=== PATIENT | male | born 1965 | race Two or more races ===

== ENCOUNTER 2021-03-12 14:53 | Inpatient (IN) | payer MEDICAID, OTHER ==
[~2021-03-12] VITALS: Ht 175.3 cm; Wt 83.0 kg
[~2021-03-12 14:53] MED LIST: ETOMIDATE (2MG/ML) 20ML VIAL IV ONE; SUCCINYLCHOLINE CHLORIDE 20 MG/ML 10ML VIAL IV ONE
[2021-03-12] MEDS ORDERED: THIAMINE 100mg/ml INJ (200mg/2ml VIAL) IV ONE (15:30)
[2021-03-12] MEDS ORDERED: SODIUM CHLORIDE 0.9% 1,000 ML IV ONE ×3 (15:30→16:45)
[2021-03-12 16:04] LABS: Basophils # (auto) 0 10 ^3/uL (0-0.2); Basophils % (auto) 0.7 % (0.0-2.0); Eosinophils # (auto) 0.1 10 ^3/uL (0-0.8); Eosinophils % (auto) 2.3 % (0.0-7.0); Hemoglobin 14.9 g/dL (13.5-17.5); Lymphocytes # (auto) 1.6 10 ^3/uL (0.4-5.4); Lymphocytes % (auto) 27.8 % (10.0-50.0); Mean Corpuscular Hemoglobin 32.1 pg (28.0-32.0); Mean Corpuscular Hgb Conc. 34.6 g/dL (32.0-36.0); Mean Corpuscular Volume 92.9 fL (80.0-100.0); Monocytes # (auto) 0.7 10 ^3/uL (0-1.3); Monocytes % (auto) 12.6 % (0.0-12.0); Neutrophils # (auto) 3.2 10 ^3/uL (1.6-8.6); Neutrophils % (auto) 56.6 % (37.0-80.0); Nucleated Red Blood Cells % 0.2 %; Red Blood Cells 4.63 10^6/uL (4.5-5.90); Red Cell Distribution Width 17.2 % (11.8-14.3); White Blood Cell 5.6 10^3/uL (4.4-10.8)
[2021-03-12 16:21] LABS: Alanine Aminotransferase 107 U/L (16-61); Albumin 3.5 g/dL (3.4-5.0); Anion Gap 13 (5-15); Aspartate Aminotransferase 96 U/L (15-37); BUN/Creatinine Ratio 10.4; Blood Urea Nitrogen 24 mg/dL (7-18); Calcium 8.2 mg/dL (8.5-10.1); Carbon Dioxide 20 mmol/L (21-32); Chloride 109 mmol/L (98-107); GFR African American 40 mL/min; GFR Non-African American 33 mL/min; Glucose 120 mg/dL (74-106); Potassium 3.5 mmol/L (3.5-5.1); Sodium 142 mmol/L (136-145)
[2021-03-12 16:29] LABS: Alkaline Phosphatase 64 U/L (45-117); Bilirubin, Total 0.4 mg/dL (0.2-1.0); Total Protein 6.8 g/dL (6.4-8.2)
[2021-03-12] MEDS ORDERED: diphenhdrAMINE HCL 50 MG/1 ML VL ONE (16:56)
[2021-03-12] MEDS ORDERED: PROMETHAZINE HCL 25 MG/ML 1ML ONE (16:57)
[2021-03-12] MEDS ORDERED: LORazepam 2MG/ML-1ML VIAL ONE (16:57)
[2021-03-12] MEDS ORDERED: diphenhdrAMINE HCL 50 MG/1 ML VL IV ONE (17:00)
[2021-03-12] MEDS ORDERED: LORazepam 2MG/ML-1ML VIAL IV ONE (17:00)
[2021-03-12] MEDS ORDERED: PROMETHAZINE HCL 25 MG/ML 1ML IV ONE (17:00)
[2021-03-12] MEDS ORDERED: SODIUM CHLORIDE 0.9% 2,000 ML IV ONE (17:30)
[2021-03-12] MEDS: NOREPINEPHRINE 8 MG/250ML KIT 250 ML IV SCH (17:43)
[2021-03-12] MEDS ORDERED: MIDAZOLAM DRIP 50 mg/50mL 50 ML IV ONE (17:44)
[2021-03-12] MEDS ORDERED: SUCCINYLCHOLINE CHLORIDE 20 MG/ML 10ML VIAL IV ONE ×2 (17:45→18:15)
[2021-03-12] MEDS ORDERED: ETOMIDATE (2MG/ML) 20ML VIAL IV ONE ×2 (17:45→18:15)
[2021-03-12] MEDS: MIDAZOLAM DRIP 50 mg/50mL 50 ML IV SCH (17:58)
[2021-03-12 17:59] LABS: Amphetamine Screen, Urine NEGATIVE (NEGATIVE); Barbiturate Scree,Urine NEGATIVE (NEGATIVE); Benzodiazephine Screen, Urine NEGATIVE (NEGATIVE); Cannabinoid Screen, Urine NEGATIVE (NEGATIVE); Cocaine Screen, Urine NEGATIVE (NEGATIVE); Phencyclidine Screen, Urine NEGATIVE (NEGATIVE)
[2021-03-12] MEDS ORDERED: PANTOPRAZOLE 40mg/50ML NS AE 50 ML IV ONE (18:00)
[2021-03-12 18:08] LABS: Opiate Scree,Urine NEGATIVE (NEGATIVE)
[2021-03-12 18:36] LABS: Urine Bacteria FEW /hpf (None Seen); Urine Blood TRACE /uL (Negative); Urine Hyaline Cast MOD /lpf (0 - 2); Urine Mucus FEW (None Seen); Urine Specific Gravity 1.015 (1.001-1.035); Urine WBC 12 /hpf (0 - 3)
[2021-03-12 19:40] VITALS: BP 109/75
[2021-03-12 22:05] VITALS: BP 119/83
[2021-03-12] MEDS ORDERED: MORPHINE SULF INJ 2 MG/ML SYRINGE 1ML IV PRN (23:45)
[2021-03-12] MEDS ORDERED: SODIUM CHLORIDE 0.9% 1,000 ML IV SCH (23:45)
[2021-03-12] MEDS ORDERED: NITROGLYCERIN 0.4 MG SL TAB SL PRN (23:45)
[2021-03-12] MEDS ORDERED: ONDANSETRON HCL 4 MG/2 ML VIAL IV PRN (23:45)
[2021-03-13] VITALS (12 sets, daily range): BP systolic 112–142; BP diastolic 71–103
[2021-03-13] MEDS ORDERED: PROPOFOL 100 ML IV ONE (02:55)
[2021-03-13] MEDS: PROPOFOL 100 ML IV SCH ×2 (03:08→20:33)
[2021-03-13 10:37] LABS: Basophils # (auto) 0 10 ^3/uL (0-0.2); Basophils % (auto) 0.5 % (0.0-2.0); Eosinophils # (auto) 0.1 10 ^3/uL (0-0.8); Eosinophils % (auto) 1.8 % (0.0-7.0); Hematocrit 37.4 % (41.0-53.0); Hemoglobin 12.7 g/dL (13.5-17.5); Mean Corpuscular Hemoglobin 31.7 pg (28.0-32.0); Mean Corpuscular Volume 93.3 fL (80.0-100.0); Monocytes # (auto) 0.7 10 ^3/uL (0-1.3); Monocytes % (auto) 10.9 % (0.0-12.0); Neutrophils # (auto) 4.2 10 ^3/uL (1.6-8.6); Neutrophils % (auto) 70.8 % (37.0-80.0); Red Blood Cells 4.01 10^6/uL (4.5-5.90); Red Cell Distribution Width 17.1 % (11.8-14.3)
[2021-03-13] MEDS: MULTIPLE VITAMIN TAB PO SCH (10:39)
[2021-03-13] MEDS: HEPARIN SODIUM (PORCINE) 5000 UNITS/ML 1ML VIAL SC SCH ×2 (10:49→22:06)
[2021-03-13] MEDS: FAMOTIDINE (10MG/ML) 2ML VL IV SCH (10:50)
[2021-03-13] MEDS: FOLIC ACID 1 MG in D5W 5% 50 ML INJ SCH (10:50)
[2021-03-13] MEDS: THIAMINE 100mg/ml INJ (200mg/2ml VIAL) IV SCH (10:50)
[2021-03-13] MEDS: AZITHROMYCIN 500MG/ 250ML 250 ML IV SCH (10:51)
[2021-03-13 11:19] LABS: Potassium 3.5 mmol/L (3.5-5.1)
[2021-03-13] MEDS ORDERED: FOLIC ACID 1 MG, MULTIPLE VITAMIN 10 ML, MAGNESIUM SULF SDV 50% 8 MEQ, THIAMINE INJ 100... INJ ONE ×5 (12:00)
[2021-03-13 12:08] LABS: BUN/Creatinine Ratio 14.3; Bilirubin, Total 0.5 mg/dL (0.2-1.0); Calcium 7.3 mg/dL (8.5-10.1); Total Protein 5.7 g/dL (6.4-8.2)
[2021-03-13] MEDS ORDERED: LABETALOL HCL 200 MG TAB PO ONE (12:15)
[2021-03-13] MEDS ORDERED: cefTRIAXone 1GM/50ML D5W 50 ML IV ONE (12:15)
[2021-03-13] MEDS ORDERED: cloNIDine HCL 0.1 MG TAB PO PRN (12:15)
[2021-03-13] MEDS ORDERED: LABETALOL HCL 5 MG/ML 4ML SYRINGE IV PRN (12:30)
[2021-03-13] MEDS: D5W/SOD CHL 0.45% 1,000 ML IV SCH (16:14)
[2021-03-13] MEDS ORDERED: cloNIDine 0.1 mg/24hr 7 DAY PATCH TD SCH (17:00)
[2021-03-13] MEDS: NOREPINEPHRINE 8 MG/250ML KIT 250 ML IV SCH (17:30)
[2021-03-13] MEDS: MIDAZOLAM DRIP 50 mg/50mL 50 ML IV SCH ×2 (18:17→21:00)
[2021-03-13] MEDS ORDERED: LABETALOL HCL 200 MG TAB PO SCH (22:00)
[2021-03-14] VITALS (30 sets, daily range): BP systolic 117–151; BP diastolic 79–106
[2021-03-14] MEDS: LABETALOL HCL 5 MG/ML 4ML SYRINGE IV PRN (00:45)
[2021-03-14] MEDS: MIDAZOLAM DRIP 50 mg/50mL 50 ML IV SCH ×3 (01:18→21:20)
[2021-03-14] MEDS: PROPOFOL 100 ML IV SCH ×3 (02:19→21:21)
[2021-03-14] MEDS: D5W/SOD CHL 0.45% 1,000 ML IV SCH (02:32)
[2021-03-14] MEDS ORDERED: ACETAMINOPHEN 650 MG RECT SUPP PR PRN (03:45)
[2021-03-14 08:41] LABS: Basophils # (auto) 0 10 ^3/uL (0-0.2); Basophils % (auto) 0.7 % (0.0-2.0); Eosinophils # (auto) 0.3 10 ^3/uL (0-0.8); Hematocrit 37.3 % (41.0-53.0); Hemoglobin 12.7 g/dL (13.5-17.5); Lymphocytes % (auto) 19.2 % (10.0-50.0); Mean Corpuscular Hemoglobin 31.3 pg (28.0-32.0); Mean Corpuscular Hgb Conc. 33.9 g/dL (32.0-36.0); Mean Corpuscular Volume 92.2 fL (80.0-100.0); Monocytes # (auto) 0.7 10 ^3/uL (0-1.3); Monocytes % (auto) 13.3 % (0.0-12.0); Neutrophils # (auto) 3.4 10 ^3/uL (1.6-8.6); Neutrophils % (auto) 61.8 % (37.0-80.0); Nucleated Red Blood Cells % 0.1 %; Red Blood Cells 4.05 10^6/uL (4.5-5.90); Red Cell Distribution Width 16.7 % (11.8-14.3); White Blood Cell 5.4 10^3/uL (4.4-10.8)
[2021-03-14 08:56] LABS: Albumin 2.8 g/dL (3.4-5.0); Calcium 7.6 mg/dL (8.5-10.1); Potassium 3.1 mmol/L (3.5-5.1)
[2021-03-14 09:00] LABS: BUN/Creatinine Ratio 15.3; Bilirubin, Total 0.6 mg/dL (0.2-1.0); Total Protein 5.8 g/dL (6.4-8.2)
[2021-03-14] MEDS: cefTRIAXone 1GM/50ML D5W 50 ML IV SCH (09:46)
[2021-03-14] MEDS: THIAMINE 100mg/ml INJ (200mg/2ml VIAL) IV SCH (09:55)
[2021-03-14] MEDS: MULTIPLE VITAMIN TAB PO SCH (09:55)
[2021-03-14] MEDS: FAMOTIDINE (10MG/ML) 2ML VL IV SCH ×2 (09:55→21:36)
[2021-03-14] MEDS: AZITHROMYCIN 500MG/ 250ML 250 ML IV SCH (10:00)
[2021-03-14] MEDS: FOLIC ACID 1 MG in D5W 5% 50 ML INJ SCH (10:00)
[2021-03-14] MEDS: HEPARIN SODIUM (PORCINE) 5000 UNITS/ML 1ML VIAL SC SCH ×2 (10:11→21:37)
[2021-03-14] MEDS ORDERED: POTASSIUM CHL 20MEQ/100ML 100 ML IV ONE (12:45)
[2021-03-14] MEDS ORDERED: SODIUM CHLORIDE 0.9% 3,000 ML IV ONE (12:45)
[2021-03-14] MEDS ORDERED: SODIUM CHLORIDE 0.9% 2,500 ML IV ONE ×2 (12:45)
[2021-03-14] MEDS: NOREPINEPHRINE 8 MG/250ML KIT 250 ML IV SCH (17:12)
[2021-03-14] MEDS: chlordiazePOXIDE HCL 5 MG CAP PO SCH ×2 (18:00→21:36)
[2021-03-15] VITALS (104 sets, daily range): BP systolic 102–185; BP diastolic 8–123
[2021-03-15] MEDS: PROPOFOL 100 ML IV SCH ×3 (01:12→16:30)
[2021-03-15 04:06] LABS: Basophils # (auto) 0.1 10 ^3/uL (0-0.2); Basophils % (auto) 1.2 % (0.0-2.0); Eosinophils # (auto) 0.4 10 ^3/uL (0-0.8); Hematocrit 38.6 % (41.0-53.0); Hemoglobin 13.5 g/dL (13.5-17.5); Lymphocytes # (auto) 1.5 10 ^3/uL (0.4-5.4); Mean Corpuscular Hemoglobin 32.4 pg (28.0-32.0); Mean Corpuscular Hgb Conc. 34.9 g/dL (32.0-36.0); Monocytes # (auto) 0.6 10 ^3/uL (0-1.3); Monocytes % (auto) 12.2 % (0.0-12.0); Neutrophils # (auto) 2.6 10 ^3/uL (1.6-8.6); Neutrophils % (auto) 49.6 % (37.0-80.0); Nucleated Red Blood Cells % 0.1 %; Red Blood Cells 4.15 10^6/uL (4.5-5.90); Red Cell Distribution Width 17.1 % (11.8-14.3); White Blood Cell 5.2 10^3/uL (4.4-10.8)
[2021-03-15 04:12] LABS: Urine Bacteria NONE SEEN /hpf (None Seen); Urine Blood 3+ /uL (Negative); Urine Mucus FEW (None Seen); Urine Specific Gravity 1.014 (1.001-1.035); Urine WBC 14 /hpf (0 - 3)
[2021-03-15 04:16] LABS: Albumin 2.7 g/dL (3.4-5.0); Calcium 7.6 mg/dL (8.5-10.1); Potassium 3.8 mmol/L (3.5-5.1)
[2021-03-15] MEDS: LABETALOL HCL 5 MG/ML 4ML SYRINGE IV PRN ×2 (04:16→06:16)
[2021-03-15 04:21] LABS: BUN/Creatinine Ratio 7.9; Bilirubin, Total 0.6 mg/dL (0.2-1.0); Total Protein 5.7 g/dL (6.4-8.2)
[2021-03-15 04:23] LABS: Phosphorus 1.4 mg/dL (2.5-4.90)
[2021-03-15 04:26] LABS: Protein, Urine 16.9 mg/dL (0.0-11.9)
[2021-03-15] MEDS: chlordiazePOXIDE HCL 5 MG CAP PO SCH ×4 (06:00→20:50)
[2021-03-15] MEDS: MIDAZOLAM DRIP 50 mg/50mL 50 ML IV SCH ×2 (06:21→22:21)
[2021-03-15] MEDS: cefTRIAXone 1GM/50ML D5W 50 ML IV SCH (09:59)
[2021-03-15] MEDS: MULTIPLE VITAMIN TAB PO SCH (09:59)
[2021-03-15] MEDS: FAMOTIDINE (10MG/ML) 2ML VL IV SCH ×2 (09:59→20:50)
[2021-03-15] MEDS: THIAMINE 100mg/ml INJ (200mg/2ml VIAL) IV SCH (09:59)
[2021-03-15] MEDS: HEPARIN SODIUM (PORCINE) 5000 UNITS/ML 1ML VIAL SC SCH ×2 (10:01→20:46)
[2021-03-15] MEDS ORDERED: SODIUM PHOSPHATES 40 MEQ in D5W 5% 250 ML IV ONE (10:15)
[2021-03-15] MEDS: AZITHROMYCIN 500MG/ 250ML 250 ML IV SCH (11:38)
[2021-03-15] MEDS: FOLIC ACID 1 MG in D5W 5% 50 ML INJ SCH (11:57)
[2021-03-15] MEDS ORDERED: FOLIC ACID 1 MG, MULTIPLE VITAMIN 10 ML, MAGNESIUM SULF SDV 50% 8 MEQ, THIAMINE INJ 100... INJ SCH ×5 (12:00)
[2021-03-15] MEDS: fentaNYL Drip 2500mCg/250mlNS 250 ML IV SCH (12:08)
[2021-03-15] MEDS: MAGNESIUM SULFATE 1GM/100ML 100 ML IV SCH ×2 (12:12→14:35)
[2021-03-15] MEDS: NOREPINEPHRINE 8 MG/250ML KIT 250 ML IV SCH (17:30)
[2021-03-16] VITALS (101 sets, daily range): BP systolic 113–182; BP diastolic 76–123
[2021-03-16] MEDS: PROPOFOL 100 ML IV SCH ×2 (00:18→04:27)
[2021-03-16] MEDS: MIDAZOLAM DRIP 50 mg/50mL 50 ML IV SCH (01:55)
[2021-03-16 03:49] LABS: Basophils # (auto) 0 10 ^3/uL (0-0.2); Basophils % (auto) 0.9 % (0.0-2.0); Eosinophils # (auto) 0.4 10 ^3/uL (0-0.8); Eosinophils % (auto) 8.7 % (0.0-7.0); Hematocrit 38.5 % (41.0-53.0); Hemoglobin 13.3 g/dL (13.5-17.5); Lymphocytes # (auto) 1.1 10 ^3/uL (0.4-5.4); Lymphocytes % (auto) 21.2 % (10.0-50.0); Mean Corpuscular Hgb Conc. 34.5 g/dL (32.0-36.0); Mean Corpuscular Volume 92.8 fL (80.0-100.0); Monocytes # (auto) 0.8 10 ^3/uL (0-1.3); Monocytes % (auto) 15.2 % (0.0-12.0); Neutrophils # (auto) 2.7 10 ^3/uL (1.6-8.6); Nucleated Red Blood Cells % 0.2 %; Red Blood Cells 4.15 10^6/uL (4.5-5.90); Red Cell Distribution Width 16.8 % (11.8-14.3)
[2021-03-16 04:11] LABS: Albumin 2.3 g/dL (3.4-5.0); Calcium 7.4 mg/dL (8.5-10.1); Potassium 3.1 mmol/L (3.5-5.1)
[2021-03-16 04:16] LABS: BUN/Creatinine Ratio 5.6; Bilirubin, Total 0.4 mg/dL (0.2-1.0); Phosphorus 2.4 mg/dL (2.5-4.90); Total Protein 5.4 g/dL (6.4-8.2)
[2021-03-16] MEDS: chlordiazePOXIDE HCL 5 MG CAP PO SCH ×4 (06:00→22:00)
[2021-03-16] MEDS: MULTIPLE VITAMIN TAB PO SCH (10:51)
[2021-03-16] MEDS: THIAMINE 100mg/ml INJ (200mg/2ml VIAL) IV SCH (10:53)
[2021-03-16] MEDS: FAMOTIDINE (10MG/ML) 2ML VL IV SCH ×2 (10:53→22:00)
[2021-03-16] MEDS: AZITHROMYCIN 500MG/ 250ML 250 ML IV SCH (10:56)
[2021-03-16] MEDS: cefTRIAXone 1GM/50ML D5W 50 ML IV SCH (10:57)
[2021-03-16] MEDS: FOLIC ACID 1 MG in D5W 5% 50 ML INJ SCH (11:00)
[2021-03-16] MEDS: HEPARIN SODIUM (PORCINE) 5000 UNITS/ML 1ML VIAL SC SCH ×2 (11:17→22:00)
[2021-03-16] MEDS: LABETALOL HCL 5 MG/ML 4ML SYRINGE IV PRN ×5 (11:17→23:12)
[2021-03-16] MEDS: fentaNYL Drip 2500mCg/250mlNS 250 ML IV SCH (12:00)
[2021-03-16] MEDS ORDERED: LISINOPRIL 10 MG TAB PO ONE (15:00)
[2021-03-16] MEDS ORDERED: LISINOPRIL 10 MG TAB ONE (17:21)
[2021-03-16] MEDS: NOREPINEPHRINE 8 MG/250ML KIT 250 ML IV SCH (17:30)
[2021-03-16] MEDS ORDERED: hydrALAZINE HCL 25 MG TAB PO PRN (19:15)
[2021-03-16] MEDS: METOPROLOL TARTRATE 25 MG TAB PO SCH (22:00)
[2021-03-17] VITALS (89 sets, daily range): BP systolic 52–164; BP diastolic 27–111
[2021-03-17] MEDS: MIDAZOLAM DRIP 50 mg/50mL 50 ML IV SCH ×2 (02:45→21:08)
[2021-03-17] MEDS: fentaNYL Drip 2500mCg/250mlNS 250 ML IV SCH (02:57)
[2021-03-17] MEDS: chlordiazePOXIDE HCL 5 MG CAP PO SCH ×4 (06:00→22:28)
[2021-03-17 06:07] LABS: Basophils # (auto) 0 10 ^3/uL (0-0.2); Basophils % (auto) 0.8 % (0.0-2.0); Eosinophils # (auto) 0.4 10 ^3/uL (0-0.8); Eosinophils % (auto) 7.8 % (0.0-7.0); Hematocrit 41.2 % (41.0-53.0); Hemoglobin 14.7 g/dL (13.5-17.5); Lymphocytes % (auto) 17.3 % (10.0-50.0); Mean Corpuscular Hemoglobin 32.6 pg (28.0-32.0); Mean Corpuscular Hgb Conc. 35.6 g/dL (32.0-36.0); Mean Corpuscular Volume 91.6 fL (80.0-100.0); Monocytes % (auto) 17.9 % (0.0-12.0); Neutrophils # (auto) 3.2 10 ^3/uL (1.6-8.6); Neutrophils % (auto) 56.2 % (37.0-80.0); Nucleated Red Blood Cells % 1.5 %; Red Cell Distribution Width 16.2 % (11.8-14.3); White Blood Cell 5.8 10^3/uL (4.4-10.8)
[2021-03-17 06:21] LABS: Albumin 2.3 g/dL (3.4-5.0); Calcium 7.2 mg/dL (8.5-10.1)
[2021-03-17 06:24] LABS: BUN/Creatinine Ratio 5.8; Bilirubin, Total 0.5 mg/dL (0.2-1.0); Total Protein 5.8 g/dL (6.4-8.2)
[2021-03-17 06:25] LABS: Potassium 2.8 mmol/L (3.5-5.1)
[2021-03-17] MEDS: cefTRIAXone 1GM/50ML D5W 50 ML IV SCH (10:16)
[2021-03-17] MEDS: THIAMINE 100mg/ml INJ (200mg/2ml VIAL) IV SCH (10:17)
[2021-03-17] MEDS: FAMOTIDINE (10MG/ML) 2ML VL IV SCH ×2 (10:17→22:28)
[2021-03-17] MEDS: MULTIPLE VITAMIN TAB PO SCH (10:19)
[2021-03-17] MEDS: AZITHROMYCIN 500MG/ 250ML 250 ML IV SCH (10:19)
[2021-03-17] MEDS: HEPARIN SODIUM (PORCINE) 5000 UNITS/ML 1ML VIAL SC SCH ×2 (10:30→22:37)
[2021-03-17] MEDS: FOLIC ACID 1 MG in D5W 5% 50 ML INJ SCH (10:59)
[2021-03-17] MEDS: METOPROLOL TARTRATE 25 MG TAB PO SCH ×2 (11:32→22:29)
[2021-03-17 11:33] LABS: Magnesium 1.4 mg/dL (1.6-2.6); Phosphorus 2.6 mg/dL (2.5-4.90)
[2021-03-17] MEDS: LISINOPRIL 10 MG TAB PO SCH (11:33)
[2021-03-17] MEDS: NOREPINEPHRINE 8 MG/250ML KIT 250 ML IV SCH ×2 (12:31→17:23)
[2021-03-17] MEDS ORDERED: POTASSIUM CHLORIDE 40 MEQ, LIDOCAINE 1% (LOCAL ANESTH.) 4 ML in SODIUM CHL 0.9% 250 ML IV ONE (13:00)
[2021-03-17] MEDS ORDERED: ACETAMINOPHEN 650 mg PER 20.3 mL UD ONE (13:55)
[2021-03-17] MEDS ORDERED: Acetam/CODEINE 120mg/12mg per 5mL UD PO PRN (14:00)
[2021-03-17] MEDS: MAGNESIUM SULFATE 1GM/100ML 100 ML IV SCH ×3 (14:02→16:00)
[2021-03-18] VITALS (61 sets, daily range): BP systolic 82–189; BP diastolic 52–129
[2021-03-18] MEDS: MIDAZOLAM DRIP 50 mg/50mL 50 ML IV SCH ×2 (01:01→05:54)
[2021-03-18] MEDS: PROPOFOL 100 ML IV SCH (03:00)
[2021-03-18] MEDS: LABETALOL HCL 5 MG/ML 4ML SYRINGE IV PRN (03:32)
[2021-03-18] MEDS: fentaNYL Drip 2500mCg/250mlNS 250 ML IV SCH (03:50)
[2021-03-18 04:24] LABS: Basophils # (auto) 0.1 10 ^3/uL (0-0.2); Basophils % (auto) 1.1 % (0.0-2.0); Eosinophils # (auto) 0.5 10 ^3/uL (0-0.8); Hematocrit 40.9 % (41.0-53.0); Hemoglobin 14.6 g/dL (13.5-17.5); Lymphocytes # (auto) 1.2 10 ^3/uL (0.4-5.4); Lymphocytes % (auto) 19.2 % (10.0-50.0); Mean Corpuscular Hemoglobin 32.6 pg (28.0-32.0); Mean Corpuscular Hgb Conc. 35.7 g/dL (32.0-36.0); Mean Corpuscular Volume 91.3 fL (80.0-100.0); Monocytes # (auto) 1.1 10 ^3/uL (0-1.3); Monocytes % (auto) 17.6 % (0.0-12.0); Neutrophils # (auto) 3.2 10 ^3/uL (1.6-8.6); Neutrophils % (auto) 54.1 % (37.0-80.0); Nucleated Red Blood Cells % 0.2 %; Red Blood Cells 4.47 10^6/uL (4.5-5.90); Red Cell Distribution Width 16.4 % (11.8-14.3)
[2021-03-18 04:41] LABS: Potassium 3.3 mmol/L (3.5-5.1)
[2021-03-18 04:48] LABS: Albumin 2.7 g/dL (3.4-5.0); BUN/Creatinine Ratio 9.2; Calcium 8.1 mg/dL (8.5-10.1); Total Protein 6.5 g/dL (6.4-8.2)
[2021-03-18] MEDS: chlordiazePOXIDE HCL 5 MG CAP PO SCH ×4 (06:00→22:43)
[2021-03-18] MEDS: cefTRIAXone 1GM/50ML D5W 50 ML IV SCH (08:30)
[2021-03-18] MEDS: METOPROLOL TARTRATE 25 MG TAB PO SCH ×2 (10:00→22:43)
[2021-03-18] MEDS: HEPARIN SODIUM (PORCINE) 5000 UNITS/ML 1ML VIAL SC SCH ×2 (10:00→22:44)
[2021-03-18] MEDS: MULTIPLE VITAMIN TAB PO SCH (10:00)
[2021-03-18] MEDS: FOLIC ACID 1 MG in D5W 5% 50 ML INJ SCH (10:00)
[2021-03-18] MEDS: LISINOPRIL 10 MG TAB PO SCH (10:00)
[2021-03-18] MEDS: AZITHROMYCIN 500MG/ 250ML 250 ML IV SCH (10:28)
[2021-03-18] MEDS: FAMOTIDINE (10MG/ML) 2ML VL IV SCH ×2 (10:28→22:42)
[2021-03-18] MEDS: THIAMINE 100mg/ml INJ (200mg/2ml VIAL) IV SCH (10:29)
[2021-03-18] MEDS ORDERED: LORazepam 2MG/ML-1ML VIAL IM ONE (12:30)
[2021-03-18] MEDS ORDERED: FUROSEMIDE 40 MG/4 ML VIAL IV ONE (14:30)
[2021-03-18] MEDS: IPRATROPIUM BROM 0.5 MG/2.5ML INH SOL NEB SCH ×2 (15:39→19:43)
[2021-03-18] MEDS: ALBUTEROL SULF 2.5 MG/0.5ML(0.5%) NEB SOLN NEB SCH ×2 (15:39→19:42)
[2021-03-18] MEDS ORDERED: HALOPERIDOL LACTATE 5 MG/ML INJ VIAL IM PRN (16:00)
[2021-03-18] MEDS: LORazepam 2MG/ML-1ML VIAL IV PRN (23:56)
[2021-03-19] VITALS (7 sets, daily range): BP systolic 127–168; BP diastolic 91–113
[2021-03-19] MEDS: PROPOFOL 100 ML IV SCH (03:00)
[2021-03-19 05:15] LABS: Albumin 3.1 g/dL (3.4-5.0); Calcium 8.8 mg/dL (8.5-10.1); Potassium 3.2 mmol/L (3.5-5.1)
[2021-03-19 05:19] LABS: BUN/Creatinine Ratio 13.6; Bilirubin, Total 0.6 mg/dL (0.2-1.0); Total Protein 7.3 g/dL (6.4-8.2)
[2021-03-19] MEDS: chlordiazePOXIDE HCL 5 MG CAP PO SCH ×4 (06:00→22:31)
[2021-03-19] MEDS: ALBUTEROL SULF 2.5 MG/0.5ML(0.5%) NEB SOLN NEB SCH ×4 (06:00→19:09)
[2021-03-19] MEDS: IPRATROPIUM BROM 0.5 MG/2.5ML INH SOL NEB SCH ×4 (06:00→19:09)
[2021-03-19] MEDS: LORazepam 2MG/ML-1ML VIAL IV PRN (06:06)
[2021-03-19] MEDS ORDERED: POTASSIUM CHL 20MEQ/100ML 100 ML IV ONE ×2 (06:15)
[2021-03-19] MEDS: FAMOTIDINE (10MG/ML) 2ML VL IV SCH (09:32)
[2021-03-19] MEDS: cefTRIAXone 1GM/50ML D5W 50 ML IV SCH (09:35)
[2021-03-19] MEDS: MULTIPLE VITAMIN TAB PO SCH (09:35)
[2021-03-19] MEDS: LISINOPRIL 10 MG TAB PO SCH (09:36)
[2021-03-19] MEDS: METOPROLOL TARTRATE 25 MG TAB PO SCH ×2 (09:36→22:50)
[2021-03-19] MEDS: THIAMINE 100mg/ml INJ (200mg/2ml VIAL) IV SCH (09:37)
[2021-03-19] MEDS: HEPARIN SODIUM (PORCINE) 5000 UNITS/ML 1ML VIAL SC SCH ×2 (09:43→22:32)
[2021-03-19] MEDS: FOLIC ACID 1 MG in D5W 5% 50 ML INJ SCH (10:00)
[2021-03-19] MEDS: AZITHROMYCIN 500MG/ 250ML 250 ML IV SCH (10:00)
[2021-03-20] MEDS: ALBUTEROL SULF 2.5 MG/0.5ML(0.5%) NEB SOLN NEB SCH ×3 (00:12→20:46)
[2021-03-20] MEDS: IPRATROPIUM BROM 0.5 MG/2.5ML INH SOL NEB SCH ×3 (00:12→20:46)
[2021-03-20 05:00] VITALS: BP 168/118
[2021-03-20] MEDS: chlordiazePOXIDE HCL 5 MG CAP PO SCH ×3 (05:40→21:13)
[2021-03-20] MEDS: LABETALOL HCL 5 MG/ML 4ML SYRINGE IV PRN (06:49)
[2021-03-20 09:00] VITALS: BP 141/89
[2021-03-20] MEDS: LISINOPRIL 10 MG TAB PO SCH (09:48)
[2021-03-20] MEDS: MULTIPLE VITAMIN TAB PO SCH (09:48)
[2021-03-20] MEDS: FOLIC ACID 1 MG TAB PO SCH (09:49)
[2021-03-20] MEDS: METOPROLOL TARTRATE 25 MG TAB PO SCH ×2 (09:49→21:14)
[2021-03-20] MEDS: HEPARIN SODIUM (PORCINE) 5000 UNITS/ML 1ML VIAL SC SCH ×2 (09:50→21:12)
[2021-03-20] MEDS: THIAMINE HCL 100 MG TAB PO SCH (09:50)
[2021-03-20 13:00] VITALS: BP 142/95
[2021-03-20 16:41] VITALS: BP 130/90
[2021-03-20 22:00] VITALS: BP 133/65
[2021-03-21 05:00] VITALS: BP 115/78
[2021-03-21] MEDS: chlordiazePOXIDE HCL 5 MG CAP PO SCH ×3 (06:07→21:40)
[2021-03-21] MEDS: ALBUTEROL SULF 2.5 MG/0.5ML(0.5%) NEB SOLN NEB SCH ×2 (06:47→22:31)
[2021-03-21] MEDS: IPRATROPIUM BROM 0.5 MG/2.5ML INH SOL NEB SCH ×2 (06:47→22:31)
[2021-03-21 08:17] LABS: BUN/Creatinine Ratio 13.9; Calcium 8.9 mg/dL (8.5-10.1); Potassium 3.1 mmol/L (3.5-5.1)
[2021-03-21] MEDS: HEPARIN SODIUM (PORCINE) 5000 UNITS/ML 1ML VIAL SC SCH ×2 (08:47→21:27)
[2021-03-21] MEDS: FOLIC ACID 1 MG TAB PO SCH (08:52)
[2021-03-21] MEDS: THIAMINE HCL 100 MG TAB PO SCH (08:52)
[2021-03-21] MEDS: MULTIPLE VITAMIN TAB PO SCH (08:53)
[2021-03-21] MEDS: LISINOPRIL 10 MG TAB PO SCH (08:55)
[2021-03-21] MEDS: METOPROLOL TARTRATE 25 MG TAB PO SCH ×2 (08:55→21:39)
[2021-03-21 09:00] VITALS: BP 126/79
[2021-03-21 13:00] VITALS: BP 98/61
[2021-03-21] MEDS ORDERED: POTASSIUM CHL 20 Meq TABLET PO ONE (15:15)
[2021-03-21] MEDS ORDERED: MAGNESIUM OXIDE 400 MG TAB PO ONE (15:15)
[2021-03-21 17:00] VITALS: BP 120/80
[2021-03-21 22:00] VITALS: BP 128/85
[2021-03-22 04:46] VITALS: BP 135/81
[2021-03-22 06:09] LABS: Potassium 3.5 mmol/L (3.5-5.1)
[2021-03-22] MEDS: ALBUTEROL SULF 2.5 MG/0.5ML(0.5%) NEB SOLN NEB SCH (06:18)
[2021-03-22] MEDS: IPRATROPIUM BROM 0.5 MG/2.5ML INH SOL NEB SCH (06:18)
[2021-03-22] MEDS: chlordiazePOXIDE HCL 5 MG CAP PO SCH ×2 (06:35→13:43)
[2021-03-22] MEDS: MULTIPLE VITAMIN TAB PO SCH (08:31)
[2021-03-22] MEDS: METOPROLOL TARTRATE 25 MG TAB PO SCH (08:31)
[2021-03-22] MEDS: LISINOPRIL 10 MG TAB PO SCH (08:31)
[2021-03-22] MEDS: FOLIC ACID 1 MG TAB PO SCH (08:31)
[2021-03-22] MEDS: THIAMINE HCL 100 MG TAB PO SCH (08:32)
[2021-03-22 09:00] VITALS: BP 128/81
[2021-03-22] MEDS: HEPARIN SODIUM (PORCINE) 5000 UNITS/ML 1ML VIAL SC SCH (09:16)
[2021-03-22] MEDS ORDERED: MAGNESIUM OXIDE 400 MG TAB PO SCH (10:00)
[2021-03-22 11:35] VITALS: BP 128/81
[2021-03-22 11:59] VITALS: BP 126/81
== END 2021-03-22 14:05 | disposition home or self-care (01) | DRG 130 ==
LOC: ER 14:53 → EDBD 14:53 → TELE 23:31 → ICU WEST 03-14 06:16 → TELE-WESTW 03-19 09:57 → WEST WING 03-20 12:31
PROVIDERS: ADMIT Nurse Practitioner Family; ATTEND Internal Medicine
PROC: 4A143B0 Monitoring of Venous Pressure, Central, Percutaneous Approach (ICD-10-PCS; principal; 2021-03-12)
PROC: 06HM33Z Insertion of Infusion Device into Right Femoral Vein, Percutaneous Approach (ICD-10-PCS; 2021-03-12)
PROC: 0BH17EZ Insertion of Endotracheal Airway into Trachea, Via Natural or Artificial Opening (ICD-10-PCS; 2021-03-12)
PROC: 5A1955Z Respiratory Ventilation, Greater than 96 Consecutive Hours (ICD-10-PCS; 2021-03-14)
PROC: 0BH17EZ Insertion of Endotracheal Airway into Trachea, Via Natural or Artificial Opening (ICD-10-PCS; 2021-03-14)
DX: J96.01 Acute respiratory failure with hypoxia (principal); N17.0 Acute kidney failure with tubular necrosis; J69.0 Pneumonitis due to inhalation of food and vomit; G92 Toxic encephalopathy; F10.231 Alcohol dependence with withdrawal delirium; E44.0 Moderate protein-calorie malnutrition; K70.10 Alcoholic hepatitis without ascites; E87.0 Hyperosmolality and hypernatremia; I95.9 Hypotension, unspecified; J96.02 Acute respiratory failure with hypercapnia; E87.6 Hypokalemia; X30.XXXA Exposure to excessive natural heat, initial encounter; T67.5XXA Heat exhaustion, unspecified, initial encounter; X58.XXXA Exposure to other specified factors, initial encounter; N18.2 Chronic kidney disease, stage 2 (mild); E83.42 Hypomagnesemia; I12.9 Hypertensive chronic kidney disease with stage 1 through stage 4 chronic kidney disease, or unspecified chronic kidney disease; Z59.0 Homelessness; Z68.28 Body mass index [BMI] 28.0-28.9, adult; Y93.89 Activity, other specified; Y92.89 Other specified places as the place of occurrence of the external cause; Y99.8 Other external cause status
CPT/HCPCS: 31500; 36415; 36556; 36600; 51702; 71045; 80048; 80053; 80307; 80320; 81001; 82550; 82570; 82805; 83735; 84100; 84132; 84156; 84300; 84443; 84484; 85025; 87040; 87070; 87081; 87086; 87205; 87426; 94002; 94003; 94640; 96361; 96365; 96375; 97110; 97116; 97530; 99291; A4565; G0378; J0330; J0696; J2001; J2250; J2704; J3480; J3490; J7060

== ENCOUNTER 2021-06-18 10:13 | Emergency (ER) | payer MEDICAID, OTHER ==
[~2021-06-18] VITALS: Ht 170.2 cm; Wt 81.6 kg
[2021-06-18] MEDS ORDERED: THIAMINE 100mg/ml INJ (200mg/2ml VIAL) IV ONE (10:30)
[2021-06-18] MEDS ORDERED: SODIUM CHLORIDE 0.9% 1,000 ML IV ONE ×2 (10:30)
[2021-06-18 11:19] LABS: Albumin 3.3 g/dL (3.4-5.0); Basophils # (auto) 0.1 10 ^3/uL (0-0.2); Basophils % (auto) 1.3 % (0.0-2.0); Eosinophils # (auto) 0.3 10 ^3/uL (0-0.8); Eosinophils % (auto) 5.2 % (0.0-7.0); Hematocrit 37.7 % (41.0-53.0); Hemoglobin 12.4 g/dL (13.5-17.5); Lymphocytes # (auto) 1.9 10 ^3/uL (0.4-5.4); Lymphocytes % (auto) 36.2 % (10.0-50.0); Mean Corpuscular Hemoglobin 30.1 pg (28.0-32.0); Mean Corpuscular Volume 91.4 fL (80.0-100.0); Monocytes # (auto) 0.7 10 ^3/uL (0-1.3); Monocytes % (auto) 13.4 % (0.0-12.0); Neutrophils # (auto) 2.3 10 ^3/uL (1.6-8.6); Neutrophils % (auto) 43.9 % (37.0-80.0); Nucleated Red Blood Cells % 0.2 %; Potassium 3.5 mmol/L (3.5-5.1); Red Blood Cells 4.13 10^6/uL (4.5-5.90); Red Cell Distribution Width 15.3 % (11.8-14.3); White Blood Cell 5.2 10^3/uL (4.4-10.8)
[2021-06-18 11:22] LABS: BUN/Creatinine Ratio 7.1; Bilirubin, Total 0.3 mg/dL (0.2-1.0)
[2021-06-18 12:00] VITALS: BP 131/89
== END 2021-06-18 13:57 | disposition left against medical advice (07) ==
LOC: EDBD 10:13 → EDUNIT# 10:13 → ER 10:13
DX: R41.82 Altered mental status, unspecified (principal); F10.129 Alcohol abuse with intoxication, unspecified; Y90.8 Blood alcohol level of 240 mg/100 ml or more
CPT/HCPCS: 36415; 80053; 80320; 85025; 96361; 96374; 99283; J3411; J7030

== ENCOUNTER 2021-11-22 10:54 | Emergency (ER) | payer MEDICAID, OTHER ==
[~2021-11-22] VITALS: Ht 180.3 cm; Wt 99.8 kg
[2021-11-22] MEDS ORDERED: SODIUM CHLORIDE 0.9% 1,000 ML IVB ONE (11:15)
[2021-11-22 11:58] LABS: Basophils # (auto) 0.1 10 ^3/uL (0-0.2); Basophils % (auto) 0.9 % (0.0-2.0); Eosinophils # (auto) 0.3 10 ^3/uL (0-0.8); Eosinophils % (auto) 4.7 % (0.0-7.0); Hematocrit 39.2 % (41.0-53.0); Hemoglobin 12.9 g/dL (13.5-17.5); Lymphocytes # (auto) 1.9 10 ^3/uL (0.4-5.4); Lymphocytes % (auto) 33.2 % (10.0-50.0); Mean Corpuscular Hemoglobin 28.5 pg (28.0-32.0); Mean Corpuscular Hgb Conc. 32.8 g/dL (32.0-36.0); Mean Corpuscular Volume 86.8 fL (80.0-100.0); Monocytes # (auto) 0.5 10 ^3/uL (0-1.3); Monocytes % (auto) 9.8 % (0.0-12.0); Neutrophils # (auto) 2.9 10 ^3/uL (1.6-8.6); Neutrophils % (auto) 51.4 % (37.0-80.0); Nucleated Red Blood Cells % 0.1 %; Red Blood Cells 4.51 10^6/uL (4.5-5.90); Red Cell Distribution Width 18.9 % (11.8-14.3); White Blood Cell 5.6 10^3/uL (4.4-10.8)
[2021-11-22 12:07] LABS: Albumin 3.9 g/dL (3.4-5.0); BUN/Creatinine Ratio 12.7; Calcium 8.3 mg/dL (8.5-10.1); Potassium 3.7 mmol/L (3.5-5.1)
[2021-11-22 12:07] LABS: Urine Bacteria NONE SEEN /hpf (None Seen); Urine Blood Negative /uL (Negative); Urine Specific Gravity 1.004 (1.001-1.035); Urine WBC <1 /hpf (0 - 3)
[2021-11-22 12:13] LABS: Bilirubin, Total 0.3 mg/dL (0.2-1.0); Total Protein 7.6 g/dL (6.4-8.2)
[2021-11-22 12:22] LABS: Amphetamine Screen, Urine NEGATIVE (NEGATIVE); Barbiturate Scree,Urine NEGATIVE (NEGATIVE); Cannabinoid Screen, Urine NEGATIVE (NEGATIVE); Opiate Scree,Urine NEGATIVE (NEGATIVE); Phencyclidine Screen, Urine NEGATIVE (NEGATIVE)
[2021-11-22] MEDS ORDERED: LORazepam 2MG/ML-1ML VIAL IV ONE (12:30)
[2021-11-22 12:31] LABS: Benzodiazephine Screen, Urine NEGATIVE (NEGATIVE); Cocaine Screen, Urine NEGATIVE (NEGATIVE)
[2021-11-22] MEDS ORDERED: SODIUM CHLORIDE 0.9% 1,000 ML IV ONE (14:15)
[2021-11-22 19:40] VITALS: BP 131/91
== END 2021-11-22 21:05 | disposition still patient (30) ==
LOC: EDBD 10:54 → EDUNIT# 10:54 → ER 10:54
DX: F10.129 Alcohol abuse with intoxication, unspecified (principal); Y90.8 Blood alcohol level of 240 mg/100 ml or more
CPT/HCPCS: 36415; 70450; 80053; 80307; 80320; 81001; 85025; 93005; 96361; 96374; 99285; J2060; J7030